=== PATIENT | male | born 1955 | race Hispanic/Latino ===

== ENCOUNTER 2020-07-14 06:44 | Outpatient (CLI) | payer MEDICARE, OTHER ==
[2020-07-14 15:08] LABS: #Basophils 0.1 10x3/uL (0.0-0.2); #Eosinphils 0.2 10x3/uL (0.0-0.5); #Monocytes 0.6 10x3/uL (0.0-1.1); #Neutrophils 3.7 10x3/uL (1.5-8.4); %Basophils 0.9 % (0.0-2.0); %Eosinophils 2.8 % (0.0-6.0); %Lymphocytes 29.4 % (18.0-47.0); %Monocytes 8.8 % (0.0-10.0); %Neutrophils 57.8 % (40.0-75.0); Hemoglobin 14.4 g/dL (14.0-18.0); Mean Corpuscular HGB CONC 34.2 G/DL (32.0-36.0); Mean Corpuscular Hemoglobin 30.7 PG (27.0-33.0); Mean Corpuscular Volume 89.8 fl (80.0-100.0); Mean Platelet Volume 10.3 fl (7.4-10.4); Platelet Count 221 10x3/uL (130-400); RBC Distribution Width 11.7 % (11.5-14.5); Red Blood Cell (RBC) Count 4.69 10x6/uL (4.40-5.80); White Blood Cell (WBC) Count 6.5 10x3/uL (4.5-11.0)
[2020-07-14 15:09] LABS: Bilirubin Neg (Negative); Blood, Urine 150 (Negative); Clarity Clear (Clear); Glucose, Urine (Dipstick) Normal (Negative); Ketone, Urine Negative (Negative); Leukocyte Negative (Negative); Nitrite Negative (Negative); Protein, Urine (Dipstick) 15 mg/dl (Neg-Trace); Specific Gravity, Urine 1.015 (1.002-1.036); Urobilinogen Normal mg/dL (Less than 2)
[2020-07-14 15:25] LABS: Anion Gap 15 mmol/L (10-20); BUN (Urea Nitrogen) 15 mg/dL (8.4-25.7); Calc. Creatinine Clearance 0 mL/min (70-130); Calcium 8.9 mg/dL (7.8-10.44); Carbon Dioxide 26 mmol/L (23-31); Chloride 101 mmol/L (98-107); Estimated GFR-MDRD 60; Glucose 140 mg/dL (80-115); Sodium 138 mmol/L (136-145)
[2020-07-14 15:27] LABS: Prothrombin Time 10.7 sec (9.5-12.1)
[2020-07-14 15:48] LABS: WBC/HPF 0-3 HPF (0-3)
[2020-07-14 15:49] LABS: Bacteria/HPF 1+ HPF (None Seen); Squamous Epithelial 0-3 HPF (0-3)
[2020-07-15 15:00] LABS: SARS-CoV-2 MS2 Positive; SARS-CoV-2 N Gene Negative; SARS-CoV-2 S Gene Negative; SARS-CoV-2 by NAA Not Detected (NotDetected); SARS-CoV-2 orf1ab Negative
--- NOTE | 2020-07-17 20:53 | EKG ---
Test Reason : Blood Pressure : / mmHG Vent. Rate : 070 BPM Atrial Rate : 070 BPM P-R Int : 148 ms QRS Dur : 098 ms QT Int : 388 ms P-R-T Axes : 039 024 027 degrees QTc Int : 419 ms Normal sinus rhythm Normal ECG No previous ECGs available Confirmed by Renetta GREENE ([id number]) on 07/17/2020 8:53:19 PM Referred By: MARCUS Confirmed By:Renetta GREENE
== END 2020-07-14 06:45 | disposition home or self-care (01) ==
LOC: LABBT 06:44
PROVIDERS: ATTEND Orthopaedic Surgery
DX: Z01.818 Encounter for other preprocedural examination (principal); M17.12 Unilateral primary osteoarthritis, left knee; Z20.828 Contact with and (suspected) exposure to other viral communicable diseases
CPT/HCPCS: 80048; 81001; 85025; 85610; 87081; 93005; U0003; 87635; 93010

== ENCOUNTER 2020-07-18 05:22 | Day surgery (SDC) | payer MEDICARE ==
--- NOTE | 2020-07-15 13:35 | HP ---
HISTORY OF PRESENT ILLNESS: The patient is a 65-year-old male with a long history of progressive degenerative arthritis of the left knee without specific injury. He has had progressive problems despite restriction of activities, anti-inflammatory medications, and previous cortisone injections. The pain is now interfering with day-to-day activities including walking, getting dressed, and sleeping. PAST MEDICAL HISTORY: The patient is otherwise in good health. He has history of hypertension, high cholesterol and possible prediabetes. ALLERGIES: HE HAS NO KNOWN ALLERGIES, BUT HAS A QUESTIONABLE ALLERGY TO ALEVE. FAMILY HISTORY: Otherwise unremarkable. SOCIAL HISTORY: Otherwise unremarkable. REVIEW OF SYSTEMS: Otherwise unremarkable. PHYSICAL EXAMINATION: GENERAL: A healthy male. HEENT: Unremarkable. NECK: Supple. NECK: Supple. CHEST: Clear. HEART: Regular rate and rhythm. ABDOMEN: Soft, nontender. RECTAL: Deferred. GENITAL: Deferred. EXTREMITIES: Pertinent findings of the left knee. There is moderate varus deformity. There is tenderness and crepitus over the medial joint line. There is 1+ valgus laxity at 30 degrees of flexion. The range of motion is 10 to 95 degrees with crepitus. Neurovascular exam is intact. There is good capillary refill. There is a left antalgic gait. DIAGNOSTIC STUDIES: X-rays of the left knee reveal [id number] collapse medially. IMPRESSION: 1. Degenerative arthritis, left knee. 2. History of hypertension. PLAN: Left total knee replacement. The nature of the surgery, length of recovery, and potential complications such as infection, loss of motion, incomplete relief, neurovascular injury, thromboembolic phenomena, possible transfusion, need for revision have been discussed in detail. Job ID: [id number]
[2020-07-18] MEDS ORDERED: Sodium Chloride 0.9% 100 ML ONE (06:16)
[2020-07-18] MEDS ORDERED: Tranexamic Acid 1,000 MG/10 ML VIAL ONE ×2 (06:16→09:41)
[2020-07-18] MEDS ORDERED: Vancomycin 1.5 GRAM/300 ML BAG ONE (06:16)
[2020-07-18] MEDS ORDERED: Bupivacaine 0.25% HCL 30 ML VIAL ONE ×2 (06:21→06:26)
[2020-07-18] MEDS ORDERED: EPINEPHrine 1 MG/ML AMP ONE (06:21)
[2020-07-18] MEDS ORDERED: Lidocaine 1% w/Epinephrine 1:100K 20 ML VIAL ONE (06:26)
[2020-07-18] MEDS ORDERED: Midazolam HCl 2 mg/2 ml Vial ONE (06:36)
[2020-07-18] MEDS ORDERED: Fentanyl 100 MCG/2 ML VIAL ONE ×4 (06:36→10:00)
[2020-07-18] MEDS ORDERED: Midazolam HCl 5 mg/5 ml Vial ONE (06:38)
[2020-07-18] MEDS ORDERED: Fentanyl 100 MCG/2 ML VIAL SLOW IVP PRN ×3 (07:33→11:09)
[2020-07-18] MEDS ORDERED: Promethazine HCl 25 MG/ML VIAL IM PRN (07:45)
[2020-07-18] MEDS ORDERED: HYDROcodone/Acetaminophen 10/325 mg Tablet PO PRN ×3 (07:45→11:09)
[2020-07-18] MEDS ORDERED: Ondansetron PF 4 MG/2 ML Vial IVP PRN ×2 (07:45→11:09)
[2020-07-18] MEDS ORDERED: Zolpidem Tartrate 5 MG TAB PO PRN ×2 (07:45→11:09)
[2020-07-18] MEDS ORDERED: traMADol HCl 50 MG TAB PO PRN ×3 (07:45→11:09)
[2020-07-18] MEDS ORDERED: Ropivacaine HCl/PF 250 ML in Premix Bag 1 BAG NERVE BLCK SCH (07:45)
[2020-07-18] MEDS ORDERED: Tranexamic Acid 1,000 MG in Sodium Chloride 0.9% 100 ML IVPB SCH ×2 (09:30→11:09)
--- NOTE | 2020-07-18 09:39 | RAD ---
EXAM: 2 views of the left knee HISTORY: Knee arthroplasty COMPARISON: None FINDINGS: No knee effusion is seen. The patient is status post knee arthroplasty without perihardware lucency or fracture. Air in the soft tissues is from recent surgery. IMPRESSION: Status post knee arthroplasty without evidence of complication.
--- NOTE | 2020-07-18 09:45 | OP ---
DATE OF PROCEDURE: 07/18/2020 METEOROLOGY PROFESSOR: ABBY Moran. The daycare assistant co-surgeon was present through the entire procedure and was responsible for providing exposure, tissue retraction, and any necessary limb or tissue manipulation required to obtain necessary reduction or hardware placement. The daycare assistant co-surgeon also provided bleeding control, tissue closure, and suturing in conjunction with the primary surgeon. ANESTHESIA: General plus adductor canal and sciatic nerve blocks. PREOPERATIVE DIAGNOSIS: Degenerative arthritis, left knee. POSTOPERATIVE DIAGNOSIS: Degenerative arthritis, left knee. PROCEDURE PERFORMED: Left total knee replacement with computer-assisted navigation with cemented [place] Triathlon components (#4 femoral component, #4 primary tibial baseplate with 11 mm CS plastic insert, and all-plastic A32 patellar component). DESCRIPTION OF PROCEDURE: After satisfactory anesthesia was induced in supine position, sequential compression device was placed on the nonoperative leg throughout the procedure. The left leg was then prepped and draped in routine sterile fashion. The left leg was elevated and exsanguinated with an Esmarch bandage. The tourniquet inflated to 300 mmHg. A gently curved medial parapatellar incision was made, carried down through the subcutaneous tissues and bleeding points were controlled with Bovie cautery. Medial parapatellar arthrotomy was performed, patella was dislocated laterally and portion of the fat pad were excised for exposure. There was marked degenerative arthritis of the knee especially medially with large areas of exposed bone. Meniscal remnants and osteophytes were removed. Using the Pump! pinless navigation system and the appropriate guides, the distal femoral and proximal tibial articular surfaces were excised with an oscillating saw to accept the trial components. It was felt that #4 femoral component, #4 tibial baseplate with 11 mm CS plastic insert gave appropriate size, fit, stability, and correction of the preoperative deformity. The patellar articular surface was excised to accept an all-plastic A32 patellar component. There was good range of motion and good patellar tracking. The trial components were removed. The knee was copiously irrigated with pulsatile lavage. The bony surfaces were thoroughly cleaned and dried. The permanent components were then cemented in a single stage using one package of cement premixed with 1 g of tobramycin powder. Excess cement was removed. There was again good fit and stability of the components. The knee was again copiously irrigated. The medial retinaculum and quadriceps mechanism were then closed with interrupted #2 Vicryl and a running #2 Quill. Subcutaneous tissues were closed with running 0 Quill suture. The skin closed with running subcuticular 3-0 Monoderm and Surgicel skin adhesive. A sterile bulky compressive dressing was applied. The tourniquet deflated after 76 minutes. The foot promptly pinked up. Sequential compression device was applied to the operated leg. He was awakened and taken to the recovery room in stable condition. There were no apparent intraoperative complications. The estimated blood loss was less than 100 mL. Job ID: [id number]
[2020-07-18] MEDS ORDERED: Acetaminophen 325 MG TAB PO PRN (11:09)
[2020-07-18] MEDS ORDERED: Promethazine HCl 25 MG/ML VIAL SLOW IVP PRN (11:09)
[2020-07-18] MEDS ORDERED: diphenhydrAMINE 25 MG CAP PO PRN (11:09)
[2020-07-18 11:18] VITALS: BMI 27.3
[2020-07-18] MEDS ORDERED: EPHEDRINE 25 MG/5 ML SYRINGE ONE (11:51)
[2020-07-18] MEDS ORDERED: PROPOFOL 200 MG/20 ML VIAL ONE (11:51)
[2020-07-18] MEDS ORDERED: Metoclopramide HCl 10 MG/2 ML VIAL ONE (11:51)
[2020-07-18] MEDS ORDERED: PHENYLEPHRINE-NS 100 MCG/ML 10 ML SYRINGE ONE (11:51)
[2020-07-18] MEDS ORDERED: Ondansetron PF 4 MG/2 ML Vial ONE (11:51)
[2020-07-18] MEDS ORDERED: Lidocaine 1% PF 5 ML VIAL ONE (11:51)
[2020-07-18] MEDS ORDERED: Ropivacaine 0.2% HCl/PF (40 MG/20 ML VIAL) ONE (11:52)
[2020-07-18] MEDS ORDERED: Bupivacaine HCl 0.5%/Epinephrine 1:200,000/PF 30 ml Vial ONE (11:52)
[2020-07-18] MEDS ORDERED: Aspirin 81 mg Enteric Coated Tablet PO SCH (12:00)
[2020-07-18] MEDS ORDERED: Ketorolac Tromethamine 30 MG/ML VIAL IVP SCH (12:00)
[2020-07-18] MEDS ORDERED: metFORMIN 500 MG TAB PO SCH (12:15)
[2020-07-18] MEDS ORDERED: Amlodipine 10 MG TAB PO SCH (12:15)
[2020-07-18] MEDS ORDERED: Multivitamin W/ Minerals 1 TAB PO SCH (12:15)
[2020-07-18] MEDS ORDERED: Senokot S 8.6-50 MG TAB PO SCH (12:15)
[2020-07-18] MEDS ORDERED: Lisinopril/Hydrochlorothiazide 10 mg/12.5 mg Tablet PO SCH (12:15)
[2020-07-18] MEDS: Sodium Chloride 0.9% 1,000 ML IV SCH ×2 (13:13→23:19)
[2020-07-18] MEDS: CEFAZOLIN 2 GM in Premix Bag 1 BAG IVPB SCH ×2 (13:25→23:12)
[2020-07-18] MEDS: Ketorolac Tromethamine 30 MG/ML VIAL IVP SCH ×3 (13:25→23:11)
[2020-07-18] MEDS ORDERED: Vancomycin 1.5 GRAM/300 ML BAG 1.5 GM in Premix Bag 1 BAG IVPB SCH (18:00)
[2020-07-18] MEDS: Aspirin 81 mg Enteric Coated Tablet PO SCH (20:44)
[2020-07-18] MEDS: Senokot S 8.6-50 MG TAB PO SCH (20:44)
[2020-07-18] MEDS: HYDROcodone/Acetaminophen 10/325 mg Tablet PO PRN (20:45)
[2020-07-19] MEDS: HYDROcodone/Acetaminophen 10/325 mg Tablet PO PRN (03:50)
[2020-07-19] MEDS: Ketorolac Tromethamine 30 MG/ML VIAL IVP SCH ×4 (05:26→23:39)
[2020-07-19 05:31] LABS: Hemoglobin 12.5 g/dL (14.0-18.0); Mean Corpuscular HGB CONC 35.4 g/dL (32.0-36.0); Mean Corpuscular Hemoglobin 32.1 pg (27.0-31.0); Mean Corpuscular Volume 90.7 fL (78.0-98.0); Mean Platelet Volume 7.5 fL (7.4-10.4); Platelet Count 151 thou/uL (130-400); RBC Distribution Width 11.2 % (11.5-14.5); Red Blood Cell (RBC) Count 3.88 mill/uL (4.70-6.10); White Blood Cell (WBC) Count 9.4 thou/uL (4.8-10.8)
[2020-07-19] MEDS: Sodium Chloride 0.9% 1,000 ML IV SCH ×2 (07:40→17:46)
[2020-07-19] MEDS: Senokot S 8.6-50 MG TAB PO SCH ×2 (08:14→21:35)
[2020-07-19] MEDS: Multivitamin W/ Minerals 1 TAB PO SCH (08:15)
[2020-07-19] MEDS: metFORMIN 500 MG TAB PO SCH (08:15)
[2020-07-19] MEDS: Amlodipine 10 MG TAB PO SCH (08:16)
[2020-07-19] MEDS: Lisinopril/Hydrochlorothiazide 10 mg/12.5 mg Tablet PO SCH (08:17)
[2020-07-19] MEDS: Aspirin 81 mg Enteric Coated Tablet PO SCH ×2 (08:41→21:35)
[2020-07-20] MEDS: Sodium Chloride 0.9% 1,000 ML IV SCH (03:28)
[2020-07-20] MEDS: Ketorolac Tromethamine 30 MG/ML VIAL IVP SCH ×2 (05:36→12:08)
[2020-07-20] MEDS: Amlodipine 10 MG TAB PO SCH (08:56)
[2020-07-20] MEDS: Aspirin 81 mg Enteric Coated Tablet PO SCH (08:56)
[2020-07-20] MEDS: metFORMIN 500 MG TAB PO SCH (08:56)
[2020-07-20] MEDS: Senokot S 8.6-50 MG TAB PO SCH (08:56)
[2020-07-20] MEDS: Lisinopril/Hydrochlorothiazide 10 mg/12.5 mg Tablet PO SCH (08:56)
[2020-07-20] MEDS: Multivitamin W/ Minerals 1 TAB PO SCH (08:57)
[2020-07-20] MEDS: HYDROcodone/Acetaminophen 10/325 mg Tablet PO PRN ×2 (09:24→12:11)
[2020-07-20 12:00] VITALS: BP 135/72; TEMP 97.9
--- NOTE | 2020-07-21 15:20 | DIS ---
DATE OF ADMISSION: 07/18/2020 DATE OF DISCHARGE: 07/20/2020 PREOPERATIVE DIAGNOSIS: Degenerative arthritis, left knee. POSTOPERATIVE DIAGNOSIS: Degenerative arthritis, left knee. PROCEDURE PERFORMED: Left total knee replacement with computer assisted navigation with cemented [place] Triathlon components. BRIEF HOSPITAL COURSE: This is a 65-year-old male who was indicated for the above-mentioned procedure after failing outpatient conservative measures. He did well in the operative suite and postoperatively he was admitted to [address] Here he worked with physical and occupational therapist. He was up and out of bed on day of surgery. His pain was managed by the anesthesiologist group. He also received postoperative antibiotics. No complications were incurred throughout his hospital stay. On postoperative day #2, he was indicated for discharge home in good condition. DISCHARGE DISPOSITION: Home. DISCHARGE CONDITION: Stable. DISCHARGE INSTRUCTIONS: The patient will keep his surgical site clean, dry, and intact. He will keep it covered with a Tegaderm pad until his followup with Dr. Davenport. He will work on outpatient physical therapy as prescribed. MEDICATIONS: See MAR. Job ID: [id number]
== END 2020-07-20 12:21 | disposition home or self-care (01) ==
LOC: SDC 05:22 → SJJU 11:09 → SDC 07-20 12:21
PROVIDERS: ATTEND Orthopaedic Surgery
PROC: 0SRD0J9 Replacement of Left Knee Joint with Synthetic Substitute, Cemented, Open Approach (ICD-10-PCS; principal; 2020-07-18)
PROC: 8E0YXBZ Computer Assisted Procedure of Lower Extremity (ICD-10-PCS; 2020-07-18)
PROC: 3E0T3BZ Introduction of Anesthetic Agent into Peripheral Nerves and Plexi, Percutaneous Approach (ICD-10-PCS; 2020-07-18)
PROC: 3E0T3BZ Introduction of Anesthetic Agent into Peripheral Nerves and Plexi, Percutaneous Approach (ICD-10-PCS; 2020-07-18)
DX: M17.12 Unilateral primary osteoarthritis, left knee (principal); G89.18 Other acute postprocedural pain; I10 Essential (primary) hypertension; E78.00 Pure hypercholesterolemia, unspecified; Z79.84 Long term (current) use of oral hypoglycemic drugs; Z79.899 Other long term (current) drug therapy; Z88.6 Allergy status to analgesic agent; Z88.8 Allergy status to other drugs, medicaments and biological substances
CPT/HCPCS: 20985; 27447; 64445; 64448; 73560; 82962; 85027; 97110 ×3; 97116 ×3; 97139 ×3; 97530 ×2; C1713; C1776; 36415; 36416; J0171; J0690; J1885; J2250; J2405; J2704; J2765; J2795; J3010; J3370; J3490; S0020

== ENCOUNTER 2021-10-10 10:46 | Outpatient (CLI) | payer MEDICARE | END 2021-10-10 10:47 | disposition home or self-care (01) | LOC: BICULT 10:46 | PROVIDERS: ATTEND Internal Medicine Nephrology | DX: N18.30 Chronic kidney disease, stage 3 unspecified (principal); N28.89 Other specified disorders of kidney and ureter | CPT/HCPCS: 76770 ==

== ENCOUNTER 2021-11-14 07:22 | Outpatient (CLI) | payer MEDICARE | END 2021-11-14 07:23 | disposition home or self-care (01) | LOC: CT 07:22 | PROVIDERS: ATTEND Urology | DX: C64.1 Malignant neoplasm of right kidney, except renal pelvis (principal); N28.1 Cyst of kidney, acquired | CPT/HCPCS: 71046; 74178; 78306; 82565; A9503 ==

== ENCOUNTER 2022-06-06 13:26 | Outpatient (CLI) | payer OTHER | END 2022-06-06 13:27 | disposition home or self-care (01) | LOC: BICCT 13:26 | PROVIDERS: ATTEND Urology | DX: Z08 Encounter for follow-up examination after completed treatment for malignant neoplasm (principal); Z90.5 Acquired absence of kidney; Z85.528 Personal history of other malignant neoplasm of kidney | CPT/HCPCS: 74150 ==

== ENCOUNTER 2023-04-04 08:03 | Emergency (ER) | payer OTHER ==
[2023-04-04] MEDS ORDERED: Ketorolac Tromethamine 30 MG/ML VIAL ONE (08:33)
== END 2023-04-04 09:20 | disposition home or self-care (01) ==
LOC: ERS 08:03
DX: M70.22 Olecranon bursitis, left elbow (principal); E78.5 Hyperlipidemia, unspecified; I10 Essential (primary) hypertension
CPT/HCPCS: 93005; 96372; J1885

== ENCOUNTER 2023-05-23 09:26 | Outpatient (CLI) | payer OTHER | END 2023-05-23 09:27 | disposition home or self-care (01) | LOC: BICCT 09:26 | PROVIDERS: ATTEND Urology | DX: C64.1 Malignant neoplasm of right kidney, except renal pelvis (principal) | CPT/HCPCS: 71046; 74176 ==

== ENCOUNTER 2025-07-20 13:39 | Outpatient (CLI) | payer OTHER | END 2025-07-20 13:40 | disposition home or self-care (01) | LOC: CT 13:39 | PROVIDERS: ATTEND Urology | DX: C64.1 Malignant neoplasm of right kidney, except renal pelvis (principal); N32.89 Other specified disorders of bladder; N40.0 Benign prostatic hyperplasia without lower urinary tract symptoms; S32.602A Unspecified fracture of left ischium, initial encounter for closed fracture; S32.592A Other specified fracture of left pubis, initial encounter for closed fracture; Z87.828 Personal history of other (healed) physical injury and trauma | CPT/HCPCS: 74176 ==

== ENCOUNTER 2025-07-28 08:58 | Outpatient (CLI) | payer OTHER | END 2025-07-28 08:59 | disposition home or self-care (01) | LOC: BICRAD 08:58 | PROVIDERS: ATTEND Urology | DX: C64.1 Malignant neoplasm of right kidney, except renal pelvis (principal) | CPT/HCPCS: 71046 ==